=== PATIENT | female | born 1970 | race Caucasian/White ===

== ENCOUNTER → 2016-03-25 | Outpatient (CLI) | payer OTHER ==
[~2016-03-25] MED LIST: BUTA1CAP3 PO; CIPR500S2 PO; CIPR500T78 PO; CYCL10TA9 PO; EPIN0.3P3 IM; FAMO20TA5 PO; FLUT1DIS26 IH; GABA-488 PO; HYDR-34 PO; KETO10TA PO; LORA1TAB5 PO; MONT10TA21 PO; NAPR550T PO; NF-ESOM40C PO; PRED10TA PO; RT-ALBUINH IH; VERA120T84 PO; otc allergy med
--- OUTSIDE RECORDS SUMMARY | 2016-03-25 12:24 | XMS REPORT | Continuity of Care Document ---
Author Author [facility] Organization [facility] Address Unknown Phone Unavailable Care Team Providers Care Microwave Radio Technician Name Role Phone PITER PARKER DO PCP Insurance Providers Payer Name Policy Number Subscriber Name Relationship [facility] [id number] Deja Bhatt Self / Same As Patient Advance Directives Directive Response Recorded Date/Time Advance Directives No 10/14/14 9:28am Organ Donor Yes 10/14/14 9:28am Problems Active Problems Medical Problem Onset Date Status Atypical migraine Unknown Acute Drug-induced anaphylaxis Unknown Acute Drug-induced anaphylaxis Unknown Acute Migraine with visual aura Unknown Acute Migraine with visual aura Unknown Acute Paresthesia Unknown Acute Medications Current Home Medications Medication Dose Units Route Directions Days/Qty Instructions Start Date Gabapentin 300 Mg 300 Mg Oral Daily 10/14/14 Verapamil Hcl 120 Mg 120 Mg Oral Daily 10/14/14 Aspirin/Caffeine/Butalbital 1 Cap 1 Cap Oral As Needed 10/14/14 Past Home Medications Medication Directions Ordered Status [Otc Allergy Med] , 07/15/11 Discontinued Naproxen Sodium 550 Mg Tablet, 550 Mg Oral Twice A Day as needed 07/15/11 Discontinued Cyclobenzaprine Hcl (Flexeril) 10 Mg Tablet, 1 Each Oral Three Times A Day And Prn 07/15/11 Discontinued Loratadine/Pseudoephedrine Sulfate 1 Tab.sr .24 H Tab.sr.24h, 1 Each Oral Daily as needed 08/28/12 Discontinued Acetaminophen/Hydrocodone Bitart 1 Ea Tablet, 1 - 2 Ea Oral Q 4 - 6 Hr Prn Discontinued Ciprofloxacin Hcl 500 Mg Tablet, 500 Mg Oral Twice A Day 03/18/14 Discontinued Prednisone 10 Mg Tablet, 10 Mg Oral Twice A Day 03/26/14 Discontinued Famotidine (Pepcid) 20 Mg Tablet, 1 Each Oral Twice A Day 03/26/14 Discontinued Epinephrine 0.3 Mg/0.3 Ml Pen.injctr, 0.3 Mg Intramusc As Needed 03/26/14 Discontinued Social History Social History Problem Response Recorded Date/Time Alcohol Use Denies Use 03/26/2014 9:10am Recreational Drug Use No 03/26/2014 9:10am Sexually Transmitted Disease No 03/26/2014 9:10am Hospital Discharge Instructions No hospital discharge instructions. Plan of Care Discharge Date 07/27/15 6:30am Prescriptions See Medication Section Functional Status No functional status results. Allergies, Adverse Reactions, Alerts Allergen Type Severity Reaction Status Last Updated Gadolinium-Containing Contrast Media ([id number]) Allergy Severe ANAPHYLAXIS Active 03/26/14 adhesive ([id number]) Allergy Unknown Active 06/15/06 Wasp venom Allergy Severe ANAPHYLAXIS Active 03/26/14 Latex Allergy Unknown Active 03/26/14 TAPE Allergy Unknown Active 06/15/06 Immunizations Name Given Type Date of Influenza Vaccine 01/19/14 Historical Vital Signs No known vital signs results. Results No known relevant diagnostic tests, laboratory data and/or discharge summary. Procedures No known history of procedures. Encounters Encounter Location Arrival/Admit Date Discharge/Depart Date Attending Provider Departed Clinic [facility] 07/26/15 8:11pm 07/27/15 6: 30am SYBIL KOLB DO
--- NOTE | 2016-03-25 13:17 | Diagnostic Imaging Report ---
CT neck and chest without intravenous contrast. INDICATION: Swelling in the lower aspect of the neck and bilateral axillae. Clinical concern for lymphadenopathy. The patient is allergic for contrast and therefore the study was done without contrast. FINDINGS: CT neck: There are no significantly enlarged lymph nodes seen in the neck. The thyroid gland appears normal. The submandibular and the parotid glands appear symmetric. The mucosal pharyngeal space appears symmetric. The epiglottis is not thickened. The vocal cords are symmetric. There is an air bubble seen projecting posterior to the trachea at the thoracic inlet level and abutting the right side of the esophagus anterolaterally. This could be related to a tiny tracheal or esophageal diverticulum. There is anterior fusion hardware involving C5 and C6 vertebral bodies with solid osseous fusion noted. CT scan of the chest: In both axillae, there are minimally prominent lymph nodes with fatty ochoa seen compatible with benign lymph nodes noted. Both breasts demonstrate dense parenchyma with no definite mass seen on this unenhanced CT scan. There is no lymphadenopathy or mass in the mediastinum. The hilar vessels are not opacified with no definite soft tissue mass or lymphadenopathy in the hilar region demonstrated. The thoracic aorta is normal in caliber. The heart size is normal. No pericardial or pleural effusion. The lungs demonstrate no significant consolidation or mass. No suspicious nodule is seen. The osseous structures appear grossly unremarkable. Sections in the upper abdomen demonstrate cholecystectomy clips. IMPRESSION: CT neck: 1. No lymphadenopathy or soft tissue mass identified. 2. Small air bubble is seen posterior to the trachea at the thoracic inlet level abutting the right side of the esophagus. This is probably related to a small tracheal or esophageal diverticulum. CT chest: No lymphadenopathy or mass seen in the mediastinum or axilla. Unremarkable exam. Dictated by: Dictated on workstation # [id number]
--- NOTE | 2016-03-25 16:00 | Diagnostic Imaging Report ---
EXAM: Bilateral ultrasound of the axilla. INDICATION: Bilateral fullness felt. FINDINGS: There are a few mildly enlarged lymph nodes measuring up to 1.9 x 1.2 x 1.3 cm in the right axilla and up to 1.9 x 1.5 x 1.2 cm on the left. They have the suggestion of fatty ochoa with no definite suspicious mass seen. IMPRESSION: Mildly enlarged bilateral axillary lymph nodes are favored to be benign. Clinical followup is recommended. Consider followup imaging if symptoms persist or worsen. Dictated by: Dictated on workstation # [id number]
--- NOTE | 2016-03-25 17:09 | Diagnostic Imaging Report ---
Ultrasound of the soft tissues of the neck. INDICATION: Soft tissue swelling in the lower aspect of the neck. FINDINGS: Unremarkable breast parenchyma seen with no focal lesion. IMPRESSION: No abnormality or enlarged lymph nodes are identified in the area of the swelling in the lower aspect of the neck. Dictated by: Dictated on workstation # [id number]
== END ==
LOC: RAD 12:19
PROVIDERS: ATTEND Surgery
DX: R59.0 Localized enlarged lymph nodes (principal)
CPT/HCPCS: 70490; 71250; 76536; 76642

== ENCOUNTER 2016-11-14 18:27 | Emergency (ER) | payer OTHER ==
[~2016-11-14] VITALS: Ht 162.6 cm; Wt 65.3 kg
[2016-11-14 19:49] LABS: BASOPHILS % (AUTO) 0 % (0-10); EOSINOPHILS # (AUTO) 0.1 10^3/uL (0.0-0.3); EOSINOPHILS % (AUTO) 2 % (0-10); LYMPHOCYTES # (AUTO) 1.5 X 10^3 (1.0-4.0); LYMPHOCYTES % (AUTO) 23 % (12-44); MEAN CORPUSCULAR HEMOGLOBIN 30 PG (25-34); MEAN CORPUSCULAR HGB CONC 34 G/DL (32-36); MEAN CORPUSCULAR VOLUME 89 FL (80-99); MEAN PLATELET VOLUME 9.7 FL (7.4-10.4); MONOCYTES # (AUTO) 0.4 X 10^3 (0.0-1.0); MONOCYTES % (AUTO) 5 % (0-12); NEUTROPHILS # (AUTO) 4.6 X 10^3 (1.8-7.8); NEUTROPHILS % (AUTO) 70 % (42-75); PLATELET COUNT 229 10^3/uL (130-400); RED BLOOD COUNT 4.67 10^6/uL (4.35-5.85); RED CELL DISTRIBUTION WIDTH 12.4 % (10.0-14.5); WHITE BLOOD COUNT 6.6 10^3/uL (4.3-11.0)
[2016-11-14 19:53] LABS: BILIRUBIN,URINE NEGATIVE (NEGATIVE); KETONES,URINE NEGATIVE (NEGATIVE); LEUKOCYTE ESTERASE ,URINE 3+ (NEGATIVE); NITRITE,URINE NEGATIVE (NEGATIVE); PH,URINE 8 (5-9); PROTEIN,URINE NEGATIVE (NEGATIVE); UROBILINOGEN,URINE NORMAL (NORMAL)
--- NOTE | 2016-11-14 19:59 | Diagnostic Imaging Report ---
PROCEDURE: CT head without contrast. INDICATION: Upper extremity and facial paresthesia with visual disturbance CT HEAD: Multiple contiguous axial CT images of the head were obtained. FINDINGS: Ventricles and sulci are within normal limits for size. There is no intracranial hemorrhage identified. There is no abnormal mass effect or shift of midline structures. IMPRESSION: Unremarkable CT of the head. Dictated by: Dictated on workstation # [id number]
--- NOTE | 2016-11-14 20:04 | ED Neurological Problem ---
General Chief Complaint: Neurological Problems Stated Complaint: BLURRED VISION/FACIAL AND L ARM NUMBNESS Nursing Triage Note: PT HERE WITH C/O NUMBNESS TO ARM BILAT AND FACIAL NUMBNESS FOR 2 DAYS. PT REPORTS BLURRED VISION FOR 4 MIN TODAY. PT REPORTS HAVING A REACTION TO AN ABX THAT URGENT CARE GAVE HER FOR WALKING PNA ON TUESDAY OF LAST WEEK. 11/08/16. Nursing Sepsis Screen: No Definite Risk Source: patient Exam Limitations: no limitations History of Present Illness Time seen by provider: 20:04 Allergies and Home Medications Allergies Coded Allergies: Gadolinium-Containing Contrast Medi (Verified Allergy, Severe, ANAPHYLAXIS , 03/26/14) venom-wasp (Verified Allergy, Severe, ANAPHYLAXIS, 03/26/14) adhesive (Verified Allergy, Unknown, 06/15/06) clarithromycin (Unverified Allergy, Unknown, 11/14/16) codeine (Verified Allergy, Unknown, 11/04/15) latex (Unverified Allergy, Unknown, 03/26/14) Uncoded Allergies: TAPE (Allergy, Unknown, 06/15/06) Home Medications Albuterol Sulfate 8.5 Gm Hfa.aer.ad, 1-2 PUFF IH Q4H PRN for WHEEZING, (Reported ) Aspirin/Caffeine/Butalbital 1 Cap Capsule, 1 CAP PO UD PRN for MIGRAINE, ( Reported) Ciprofloxacin 500 Mg/5 Ml Keeley.mc.rec, 500 MG PO BID for 5 Days Prescribed by: CALLI SIMMONS on 11/05/15 1048 Esomeprazole Magnesium 40 Mg Cap, 40 MG PO HS, (Reported) Fluconazole 100 Mg Tablet, 100 MG PO DAILY, #10 Ref 0 Prescribed by: ANITA HAYES on 11/14/162057 Fluticasone/Salmeterol 1 Each Blst.w.dev, 1 EACH IH BID, (Reported) Past Fpttkok-Vwjwst-Jiitzh Hx Patient Social History Recent Foreign Travel: No Contact w/Someone Who Travel: No Recent Infectious Disease Expo: No Recent Hopitalizations: No Immunizations Up To Date Date of Influenza Vaccine: Jan 19, 2014 Seasonal Allergies Seasonal Allergies: Yes Surgeries History of Surgeries: Yes (ELBOW, NECK, CARPAL TUNNEL, c/s x2, bilat breast lumpectomy, wisdom teeth) Respiratory History of Respiratory Disorde: Yes Respiratory Disorders: Asthma Cardiovascular History of Cardiac Disorders: No Neurological History of Neurological Disord: Yes Neurological Disorders: Headaches /Migraines Reproductive System Hx Reproductive Disorders: No Sexually Transmitted Disease: No 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 Gastrointestinal History of Gastrointestinal Di: Yes Gastrointestinal Disorders: Gastroesophageal Reflux Musculoskeletal History of Musculoskeletal Dis: No Endocrine History of Endocrine Disorders: No Cancer History of Cancer: No Psychosocial History of Psychiatric Problem: Yes Behavioral Health Disorders: Anxiety Integumentary History of Skin or Integumenta: No Blood Transfusions History of Blood Disorders: No Family Medical History Family Medial History: Cardiovascular disease G8 BROTHER Cataracts 19 MOTHER Completed stroke 19 FATHER G8 BROTHER Diabetes mellitus 19 FATHER Hypertension 19 FATHER 19 MOTHER G8 BROTHER Physical Exam Vital Signs Vital Sign - Last 12Hours 11/14/16 18:38 Temp 98.7 Pulse 78 Resp 18 B/P (MAP) 130/87 Pulse Ox 98 O2 Delivery Room Air Capillary Refill : Less Than 3 Seconds Progress/Results/Core Measures Results/Orders Lab Results Laboratory Tests Test 11/14/16 19:40 11/14/16 19:44 Range/Units White Blood Count 6.6 4.3-11.0 10^3/uL Red Blood Count 4.67 4.35-5.85 10^6/uL Hemoglobin 14.0 11.5-16.0 G/DL Hematocrit 42 35-52 % Mean Corpuscular Volume 89 80-99 FL Mean Corpuscular Hemoglobin 30 25-34 PG Mean Corpuscular Hemoglobin Concent 34 32-36 G/DL Red Cell Distribution Width 12.4 10.0-14.5 % Platelet Count 229 130-400 10^3/uL Mean Platelet Volume 9.7 7.4-10.4 FL Neutrophils (%) (Auto) 70 42-75 % Lymphocytes (%) (Auto) 23 12-44 % Monocytes (%) (Auto) 5 0-12 % Eosinophils (%) (Auto) 2 0-10 % Basophils (%) (Auto) 0 0-10 % Neutrophils # (Auto) 4.6 1.8-7.8 X 10^3 Lymphocytes # (Auto) 1.5 1.0-4.0 X 10^3 Monocytes # (Auto) 0.4 0.0-1.0 X 10^3 Eosinophils # (Auto) 0.1 0.0-0.3 10^3/uL Basophils # (Auto) 0.0 0.0-0.1 10^3/uL Sodium Level 139 135-145 MMOL/L Potassium Level 3.3 L 3.6-5.0 MMOL/L Chloride Level 106 98-107 MMOL/L Carbon Dioxide Level 22 21-32 MMOL/L Anion Gap 11 5-14 MMOL/L Blood Urea Nitrogen 13 7-18 MG/DL Creatinine 0.77 0.60-1.30 MG/DL Estimat Glomerular Filtration Rate > 60 BUN/Creatinine Ratio 17 Glucose Level 91 70-105 MG/DL Calcium Level 8.9 8.5-10.1 MG/DL Total Bilirubin 0.5 0.1-1.0 MG/DL Aspartate Amino Transf (AST/SGOT) 16 5-34 U/L Alanine Aminotransferase (ALT/SGPT) 19 0-55 U/L Alkaline Phosphatase 61 40-136 U/L Troponin I < 0.30 <0.30 NG/ML Total Protein 6.4 6.4-8.2 GM/DL Albumin 3.8 3.2-4.5 GM/DL TSH [place] Testing 0.83 0.35-4.94 UIU/ML Urine Color YELLOW Urine Clarity CLEAR Urine pH 8 5-9 Urine Specific [place] 1.010 L 1.016-1.022 Urine Protein NEGATIVE NEGATIVE Urine Glucose (UA) NEGATIVE NEGATIVE Urine Ketones NEGATIVE NEGATIVE Urine Nitrite NEGATIVE NEGATIVE Urine Bilirubin NEGATIVE NEGATIVE Urine Urobilinogen NORMAL NORMAL MG/DL Urine Leukocyte Esterase 3+ H NEGATIVE Urine RBC (Auto) NEGATIVE NEGATIVE Urine RBC NONE /HPF Urine WBC 5-10 H /HPF Urine Squamous Epithelial Cells 2-5 /HPF Urine Crystals NONE /LPF Urine Bacteria TRACE /HPF Urine Casts NONE /LPF Urine Mucus NEGATIVE /LPF Urine Yeast FEW H /HPF Urine Culture Indicated YES My Orders Orders - ANITA HAYES Cbc With Automated Diff (11/14/16 19:07) Comprehensive Metabolic Panel (11/14/16 19:07) Thyroid Analyzer (11/14/16 19:07) Troponin I (11/14/16 19:07) Ua Culture If Indicated (11/14/16 19:07) Ct Head Wo (11/14/16 19:07) Saline Lock/Iv-Start (11/14/16 19:07) Ekg Tracing (11/14/16 19:07) Urine Culture (11/14/16 19:44) Ketorolac Injection (Toradol Injection) (11/14/16 20:24) Ns Iv 1000 Ml (Sodium Chloride 0.9%) (11/14/16 20:24) Medications Given in ED Current Medications Medications Dose Ordered Sig/Raya Route Start Time Stop Time Status Last Admin Dose Admin Sodium Chloride 1,000 ml @ 0 mls/hr Q0M ONCE IV 11/14/16 20:24 11/14/16 20:26 DC 11/14/16 20:34 0 MLS/HR Vital Signs/I&O Vital Sign - Last 12Hours 11/14/16 11/14/16 18:38 20:36 Temp 98.7 Pulse 78 57 Resp 18 16 B/P (MAP) 130/87 152/97 Pulse Ox 98 96 O2 Delivery Room Air Room Air Blood Pressure Mean: 101 Departure Impression Impression: Primary Impression: Urinary tract infection Qualified Codes: N30.00 - Acute cystitis without hematuria Disposition: HOME, SELF-CARE Condition: Improved Departure-Patient Inst. Decision time for Depature: 20:48 Referrals: PITER PARKER DO (PCP/Family) Primary Care Physician Patient Instructions: Urinary Tract Infection, Adult (DC) Add. Discharge Instructions: All discharge instructions reviewed with patient and/or family. Voiced understanding. Medications as directed. Continue cefdinir. Drink plenty of fluids. Follow-up with the family practitioner this week for recheck. Return to the emergency department for worsened pain, numbness, weakness, change in behavior, slurred speech, changes in vision, or any other concerns. Scripts Fluconazole (Fluconazole) 100 Mg Tablet 100 MG PO DAILY, #10 TAB 0 Refills Prov: ANITA HAYES 11/14/16 ANITA HAYES Nov 14, 2016 20:04
[2016-11-14 20:05] LABS: YEAST,URINE FEW /HPF
[2016-11-14 20:15] LABS: ALANINE AMINOTRANSFERASE 19 U/L (0-55); ALBUMIN 3.8 GM/DL (3.2-4.5); ANION GAP 11 MMOL/L (5-14); ASPARTATE AMINO TRANSFERASE 16 U/L (5-34); BILIRUBIN,TOTAL 0.5 MG/DL (0.1-1.0); BLOOD UREA NITROGEN 13 MG/DL (7-18); BUN/CREATININE RATIO 17; CALCIUM 8.9 MG/DL (8.5-10.1); CARBON DIOXIDE 22 MMOL/L (21-32); CHLORIDE 106 MMOL/L (98-107); CREATININE SERUM 0.77 MG/DL (0.60-1.30); GFR ESTIMATED > 60; GLUCOSE 91 MG/DL (70-105); POTASSIUM 3.3 MMOL/L (3.6-5.0); SODIUM 139 MMOL/L (135-145); TOTAL PROTEIN 6.4 GM/DL (6.4-8.2)
[2016-11-14] MEDS ORDERED: KETOROLAC 30 MG/ML VIAL IVP STA (20:24)
[2016-11-14] MEDS ORDERED: NS IV 1000 ML 1,000 ML IV ONE (20:24)
[2016-11-14 20:35] LABS: TROPONIN I < 0.30 NG/ML (<0.30)
[2016-11-14] MEDS ORDERED: FLUC100T6 PO (20:58)
[2016-11-14 21:10] VITALS: BP 151/95
--- OUTSIDE RECORDS SUMMARY | 2016-11-15 12:03 | XMS REPORT ---
Author LLOYD Lopez [facility] [place] e[employer] Address Unknown Phone Unavailable Care Team Providers Care Scroll Shear Operator Name Role Phone LLOYD BRAY CP Unavailable Allergies No Known Allergies Problems Problem Type Condition ICD-9 Code Onset Dates Condition Status Problem Screening examination for pulmonary tuberculosis V74.1 Active Problem Other specified examination V72.85 Active Problem Routine general medical examination at health care facility V70.0 Active Problem Acute sinusitis, unspecified 461.9 Active Assessment Encounter for PPD test V74.1 Active Problem Cervicalgia 723.1 Active Problem Dizziness and giddiness 780.4 Active Medications No Known Medications Procedures Procedure Coding System Code Date TB INTRADERMAL TEST CPT-4 67844 Nov 18, 2014 Results No Known Results Summary Purpose eClinicalWorks Submission
== END 2016-11-14 21:10 | disposition home or self-care (01) ==
LOC: EDUNIT# 18:27 → ER 18:29
DX: N39.0 Urinary tract infection, site not specified (principal); F41.9 Anxiety disorder, unspecified; K21.9 Gastro-esophageal reflux disease without esophagitis; G43.909 Migraine, unspecified, not intractable, without status migrainosus; J45.909 Unspecified asthma, uncomplicated; Z90.710 Acquired absence of both cervix and uterus; Z79.82 Long term (current) use of aspirin
CPT/HCPCS: 36415; 70450; 80053; 81000; 84443; 84484; 85025; 87088; 93005; 96361; 96374

== ENCOUNTER → 2017-04-04 | Outpatient (CLI) | payer OTHER ==
[~2017-04-04] MED LIST changes: +FLUC100T6 PO
--- NOTE | 2017-04-04 12:58 | Diagnostic Imaging Report ---
Upper extremity left nonvascular. INDICATION: Left lung mass. Reportedly, there is clinical concern regarding a palpable abnormality along the proximal humerus. The ultrasound examination in this area, however, shows no discrete solid or cystic mass. If there is indeed a clinically palpable mass present, then biopsy should still be considered. IMPRESSION: There is no discrete solid or cystic mass in the area of the patient's palpable abnormality. Clinical followup is recommended. Dictated by: Dictated on workstation # [id number]
== END ==
LOC: RAD 10:32
PROVIDERS: ATTEND Surgery
DX: R22.32 Localized swelling, mass and lump, left upper limb (principal)
CPT/HCPCS: 76881

== ENCOUNTER → 2017-04-26 | Outpatient (CLI) | payer OTHER ==
--- NOTE | 2017-04-27 12:50 | Diagnostic Imaging Report ---
EXAMINATION: Digital mammogram INDICATION: Bilateral screening This study was compared to prior exams of 02/09/2016, 08/25/2015, 07/10/2014 and 07/09/2013. At this time there are no current complaints. The current study was also evaluated with a Computer Aided Detection (CAD) system. Fibroglandular tissue in both breasts is heterogeneously dense. This does limit the sensitivity of this exam. In the interval since the previous study a few linear calcifications have developed in the midportion of the right breast roughly 8 CM from the nipple. These calcifications are only visualized on the craniocaudad view. These calcifications could be vascular in nature. Even so, I would recommend that a compression/magnification view of this area be obtained in the CC projection. A true lateral view should also be performed. If these calcifications can be identified on the true lateral view they should be compressed and magnified as well. The left breast is stable in appearance. IMPRESSION: Additional mammographic views of the right breast would be recommended for further evaluation. ACR BI-RADS Category 0: Incomplete. (Needs additional imaging evaluation). Result letter will be mailed to the patient. Note: At least 10% of breast cancer is not imaged by mammography. Dictated by: Dictated on workstation # [id number]
== END ==
LOC: RAD 08:25
PROVIDERS: ATTEND Obstetrics & Gynecology
DX: Z12.31 Encounter for screening mammogram for malignant neoplasm of breast (principal)
CPT/HCPCS: 77067

== ENCOUNTER → 2017-05-12 | Outpatient (CLI) | payer OTHER ==
--- NOTE | 2017-05-12 09:26 | Diagnostic Imaging Report ---
INDICATION: Right breast calcifications and right breast density. Study is performed for further evaluation. Correlation is made with diagnostic mammogram earlier the same day. Sonographic interrogation at the 12 o'clock location of the right breast was performed. There is a 6 mm x 3 mm x 4 mm simple cyst in the 12 o'clock retroareolar right breast. In addition, there is a well-defined hypoechoic nodule at 12 o'clock right breast 7 cm from the nipple with internal debris, suggestive of a complex cyst. This likely accounts for the density noted on recent mammogram. This measures 6 mm x 5 mm x 7 mm. Features are fairly benign. No other masses are seen. IMPRESSION: BI-RADS 3 1. Well-defined hypoechoic nodule at the 12 o'clock location of the right breast, perhaps accounting for the mammographic density which contains calcifications. Followup right breast ultrasound and right mammogram in 6 months recommended to confirm stability. ACR BI-RADS Category 3: Probably benign findings. Dictated by: Dictated on workstation # [id number]
--- NOTE | 2017-05-12 18:28 | Diagnostic Imaging Report ---
INDICATION: Right breast calcifications. Patient presents for additional views. COMPARISON: Correlation is made with recent screening study from 04/26/2017. The patient returned and 90 degree lateral view as well as magnification CC and ML views were obtained. The current study was also evaluated with a Computer Aided Detection (CAD) system. FINDINGS: There are linear calcifications associated with a slightly nodular density in the upper right breast at approximately 12 o'clock location in the far posterior aspect. The patient reportedly has had a right breast biopsy at this location. This could represent a small area of fat necrosis or oil cyst. No other significant abnormality is seen. IMPRESSION: Questionable nodular density with benign calcifications in the 12 o'clock location of the right breast posterior depth, perhaps a small area of fat necrosis or oil cyst. Further evaluation of this area with ultrasound is recommended. ACR BI-RADS Category 0: Incomplete. (Needs additional imaging evaluation). Result letter will be mailed to the patient. Note: At least 10% of breast cancer is not imaged by mammography. Dictated by: Dictated on workstation # [id number]
== END ==
LOC: RAD 07:54
PROVIDERS: ATTEND Obstetrics & Gynecology
DX: N63.10 Unspecified lump in the right breast, unspecified quadrant (principal); R92.1 Mammographic calcification found on diagnostic imaging of breast

== ENCOUNTER → 2017-10-31 | Outpatient (CLI) | payer OTHER ==
--- NOTE | 2017-10-31 13:42 | Diagnostic Imaging Report ---
Indication: Six-month followup right breast nodule with calcifications. Correlation is made with prior mammograms from 04/26/2017 and 05/12/2017. 2-D and 3-D unilateral right diagnostic mammography was performed with CAD. Images included conventional CC, MLO and 90-degree lateral views. The right breast remains heterogenously dense. Area of slight nodularity with calcification in the 12 o'clock location of the right breast approximately 7 cm from the nipple, appears to be fairly stable. No new mass or malignant-appearing microcalcifications are seen. The right axilla is unremarkable. Impression: BI-RADS 0 Stable right breast nodule and calcifications. Further evaluation with ultrasound is recommended and will be performed today. Dictated by: Dictated on workstation # [id number]
--- NOTE | 2017-10-31 18:27 | Diagnostic Imaging Report ---
INDICATION: Right breast nodule. Patient presents for six-month followup. CORRELATION is made with prior right breast ultrasound from 05/12/2017. FINDINGS: Hypoechoic nodule with calcification at the 12 o'clock location of the right breast 7 cm from the nipple is again noted. This measures approximately 6 mm x 5 mm x 5 mm, similar to prior exam. There appear to be calcifications within the nodule. No new lesion is detected. IMPRESSION: Stable hypoechoic nodule at 12 o'clock location right breast 7 cm from the nipple. Additional sonographic followup and mammogram in 6 months is recommended to show continued stability. BI-RADS 3 ACR BI-RADS Category 3: Probably benign findings. Result letter will be mailed to the patient. Note: At least 10% of breast cancer is not imaged by mammography. Dictated by: Dictated on workstation # [id number]
== END ==
LOC: RAD 12:53
PROVIDERS: ATTEND Obstetrics & Gynecology
DX: N63.10 Unspecified lump in the right breast, unspecified quadrant (principal); R92.1 Mammographic calcification found on diagnostic imaging of breast

== ENCOUNTER → 2018-05-29 | Outpatient (CLI) | payer OTHER ==
--- NOTE | 2018-05-29 09:56 | Diagnostic Imaging Report ---
INDICATION: Routine screening. COMPARISON: 04/26/2017 and 08/25/2015. TECHNIQUE: 2D and 3D bilateral screening mammography was performed with CAD. FINDINGS: Both breasts are heterogeneously dense, limiting the sensitivity of mammography. The breast parenchymal pattern is stable. No dominant mass or malignant appearing microcalcifications are seen. Benign-appearing calcifications in the superior right breast are noted. The axillae are unremarkable. IMPRESSION: No mammographic features suspicious for malignancy are identified. ACR BI-RADS Category 2: Benign findings. Result letter will be mailed to the patient. Note: At least 10% of breast cancer is not imaged by mammography. Dictated by: Dictated on workstation # [id number]
== END ==
LOC: RAD 07:36
PROVIDERS: ATTEND Obstetrics & Gynecology
DX: Z12.31 Encounter for screening mammogram for malignant neoplasm of breast (principal)
CPT/HCPCS: 77067

== ENCOUNTER 2019-07-23 12:49 | Outpatient (RCR) | payer BC, OTHER | END 2019-10-21 | disposition home or self-care (01) | LOC: ONC 12:49 | PROVIDERS: ATTEND Internal Medicine Hematology & Oncology | DX: M79.89 Other specified soft tissue disorders (principal); I10 Essential (primary) hypertension; J45.909 Unspecified asthma, uncomplicated; R22.1 Localized swelling, mass and lump, neck; R22.2 Localized swelling, mass and lump, trunk | CPT/HCPCS: 99214 ==

== ENCOUNTER → 2019-08-15 | Outpatient (CLI) | payer BC ==
--- NOTE | 2019-08-15 13:13 | Diagnostic Imaging Report ---
INDICATION: Routine screening. COMPARISON: 05/29/2018 and 04/26/2017. TECHNIQUE: 2D and 3D bilateral screening mammography was performed with CAD. FINDINGS: Both breasts are heterogeneously dense, limiting the sensitivity of mammography. There is a slightly lobulated circumscribed density in the upper and inner aspect of the right breast, best seen on the tomographic images. This is approximately 6 cm from the nipple. No other masses are seen. The left breast is unremarkable. There are benign calcifications. No malignant appearing microcalcifications are seen. The axillae are unremarkable. IMPRESSION: Parenchymal density in the upper inner right breast at posterior depth. Further evaluation with additional views is recommended. If this persists, ultrasound would be necessary as well. ACR BI-RADS Category 0: Incomplete. (Needs additional imaging evaluation). Result letter will be mailed to the patient. Note: At least 10% of breast cancer is not imaged by mammography. Dictated by: Dictated on workstation # [id number]
== END ==
LOC: RAD 10:12
PROVIDERS: ATTEND Obstetrics & Gynecology
DX: Z12.31 Encounter for screening mammogram for malignant neoplasm of breast (principal); R92.8 Other abnormal and inconclusive findings on diagnostic imaging of breast
CPT/HCPCS: 77063; 77067

== ENCOUNTER → 2019-08-23 | Outpatient (CLI) | payer BC ==
--- NOTE | 2019-08-23 12:32 | Diagnostic Imaging Report ---
INDICATION: Screening Study dated 08/15/2019 showed indeterminate density in the right breast she returns for unilateral right diagnostic views. CC and MLO and 90 degree lateral medial 2-D mammograms with 3-D tomosynthesis performed. There is no evidence for breast mass. No architectural distortion, spiculated lesion or suspicious appearing calcifications. No change from comparison studies. IMPRESSION: Negative unilateral right diagnostic mammogram. BI-RADS Category 1 ACR BI-RADS Category 1: Negative. Result letter will be mailed to the patient. Note: At least 10% of breast cancer is not imaged by mammography. Dictated by: Dictated on workstation # [id number]
== END ==
LOC: RAD 09:34
PROVIDERS: ATTEND Obstetrics & Gynecology
DX: R92.8 Other abnormal and inconclusive findings on diagnostic imaging of breast (principal)

== ENCOUNTER → 2020-11-05 | Outpatient (CLI) | payer BC ==
--- NOTE | 2020-11-05 12:28 | Diagnostic Imaging Report ---
INDICATION: Routine screening. Comparison is made with prior mammogram 08/15/2019 and 05/29/2018. 2-D and 3-D bilateral screening mammography was performed with CAD. Both breasts are heterogeneously dense, limiting the sensitivity of mammography. Benign nodular and benign calcifications in the superior right breast is stable. No spiculated mass or malignant-appearing microcalcifications are seen. Axillae are unremarkable. IMPRESSION: BI-RADS Category 2 No mammographic features suspicious for malignancy are identified. ACR BI-RADS Category 2: Benign findings. Result letter will be mailed to the patient. Note: At least 10% of breast cancer is not imaged by mammography. Dictated by: Dictated on workstation # [id number]
== END ==
LOC: RAD 10:30
PROVIDERS: ATTEND Obstetrics & Gynecology
DX: Z12.31 Encounter for screening mammogram for malignant neoplasm of breast (principal)
CPT/HCPCS: 77063; 77067

== ENCOUNTER → 2021-02-11 | Outpatient (CLI) | payer BC, OTHER ==
--- NOTE | 2021-02-11 08:49 | Diagnostic Imaging Report ---
EXAMINATION: Magnetic resonance imaging of the right shoulder without contrast. DATE: February 11, 2021. COMPARISON: None. HISTORY: 50-year-old female, right shoulder pain. Pulling injury. TECHNIQUE: Magnetic Resonance Imaging sequences were performed of the shoulder without contrast. FINDINGS: ROTATOR CUFF, LIGAMENTS, TENDONS, AND MUSCLES: The supraspinatus, infraspinatus, teres minor, and subscapularis tendons and muscles are intact. There is normal rotator cuff muscle bulk and signal. LONG HEAD OF BICEPS: The biceps labral attachment and long head of the biceps tendon are intact. The long head of the biceps tendon is normally positioned within the bicipital groove. GLENOHUMERAL JOINT: The humeral head is well positioned relative to the glenoid. There is fluid undermining the biceps labral attachment, highly likely representing a superior labral tear. This is extending posterior to the biceps labral attachment and likely does include involvement of the posterior superior labrum. The additional labrum appears intact. There is no identified paralabral cyst. The articular cartilage is grossly intact. There is no joint effusion. ACROMIOCLAVICULAR JOINT: The acromioclavicular joint is normally aligned. The coracoclavicular and coracoacromial ligaments are intact. There are mild acromioclavicular degenerative changes without large undersurface osteophyte. BONE: There is no os acromiale. There is no Hill-Sachs deformity. There is mild degenerative related marrow edema adjacent to the acromioclavicular joint. There is extensive marrow edema involving the scapular spine and base of the coracoid. There is a subtle probable fracture line on sagittal T2 fat saturation sequence image 5. BURSAE AND SOFT TISSUES: There is prominent soft tissue edema in the region of the prominent marrow edema in the scapula and also adjacent to the coracoclavicular ligaments. IMPRESSION: 1. Extensive marrow edema in the scapular spine and base of the coracoid with a subtle nondisplaced fracture line at the level of the scapular spine. This may be a stress related fracture. Recommend correlation with history and for any direct trauma to this site. 2. Probable tear involving the superior labrum without paralabral cyst. No identified cartilage defect. 3. Intact rotator cuff and proximal long head of the biceps tendon. 4. Mild acromioclavicular degenerative changes without large undersurface osteophyte. Dictated by: Dictated on workstation # [id number]
== END ==
LOC: RAD 08:00
PROVIDERS: ATTEND Physician Assistant
DX: S42.101A Fracture of unspecified part of scapula, right shoulder, initial encounter for closed fracture (principal); X50.9XXA Other and unspecified overexertion or strenuous movements or postures, initial encounter; M19.011 Primary osteoarthritis, right shoulder
CPT/HCPCS: 73221

== ENCOUNTER → 2021-11-06 | Outpatient (CLI) | payer BC ==
[~2021-11-06] MED LIST changes: +FLUC100T10 PO; -FLUC100T6 PO
--- NOTE | 2021-11-09 08:46 | Diagnostic Imaging Report ---
INDICATION: Routine screening. Comparison is made with prior mammogram of 11/05/2020 and 08/15/2019. 2-D and 3-D bilateral screening mammography was performed with CAD. Both breasts are heterogeneously dense, limiting the sensitivity of mammography. The overall parenchymal pattern appears to be stable. No dominant mass or malignant-appearing microcalcifications are seen. There are benign calcifications present. Axillae are unremarkable. IMPRESSION: No mammographic features suspicious for malignancy are identified. ACR BI-RADS Category 2: Benign findings. Result letter will be mailed to the patient. Note: At least 10% of breast cancer is not imaged by mammography. BI-RADS Category 2 Dictated by: Dictated on workstation # [id number]
== END ==
LOC: RAD 14:58
PROVIDERS: ATTEND Internal Medicine
DX: Z12.31 Encounter for screening mammogram for malignant neoplasm of breast (principal)
CPT/HCPCS: 77063; 77067

== ENCOUNTER → 2022-10-25 | Outpatient (CLI) | payer BC ==
[~2022-10-25] MED LIST changes: +ALBU8.5H6 IH; +MONT-47 PO; -MONT10TA21 PO; -RT-ALBUINH IH
--- NOTE | 2022-10-25 10:37 | Diagnostic Imaging Report ---
INDICATION: Routine screening. COMPARISON: 11/06/2021 and 11/05/2020. TECHNIQUE: 2D and 3D bilateral screening mammography was performed with CAD. FINDINGS: Both breasts are heterogeneously dense, limiting the sensitivity of mammography. The parenchymal pattern is stable. No mass or malignant-appearing microcalcifications are seen. The axillae are unremarkable. IMPRESSION: No mammographic features suspicious for malignancy are identified. ACR BI-RADS Category 1: Negative. Result letter will be mailed to the patient. Note: At least 10% of breast cancer is not imaged by mammography. Dictated by: Dictated on workstation # [id number]
== END ==
LOC: RAD 07:55
PROVIDERS: ATTEND Internal Medicine
DX: Z12.31 Encounter for screening mammogram for malignant neoplasm of breast (principal)
CPT/HCPCS: 77063; 77067